=== PATIENT | female | born 1980 | race Caucasian/White ===

== ENCOUNTER 2017-06-15 16:18 | Outpatient (CLI) | payer BC, SELFPAY ==
[2017-06-15 16:37] VITALS: BMI 32.7
[2017-06-15 17:03] LABS: Hematocrit 38.8 % (37-47); Hemoglobin 13.7 g/dl (12.0-15.0); Mean Corp Hgb Conc 35.3 g/gl (32-36); Mean Corpuscular Hgb 31.4 pg (27.0-32.0); Mean Platelet Vol. 11.2 fl (6.2-12.0); Platelet Count 229 K/mm3 (150-450); RBC Distribution Width CV 12.9 % (11.6-14.6); RBC Distribution Width SD 41.9 fl (35.1-43.9); Red Blood Count 4.36 M/mm3 (4.2-5.4)
[2017-06-15 17:04] LABS: Scan Indicated on CBC? Y/N NO
[2017-06-15 17:18] LABS: AST(SGOT) 27 U/L (15-37); Alanine Aminotransfer ALT/SGPT 30 U/L (13-56); Creatinine, Serum 0.63 mg/dL (0.55-1.02); Creatinine, Urine (random) < 13.00 mg/dL (NO RANGE EST.); EST Glomerular Filtration Rate 114 mL/min (>60); Est Glom Filt Rate - Afr Amer 138 mL/min (>60); International Normalized Ratio 0.9; Protein, Urine (Random) < 6.0 mg/dL (<11.9); Prothrombin Time (Protime)PT. 12.6 SECONDS (11.7-14.9); Uric Acid 4.5 mg/dL (2.6-6.0)
--- NOTE | 2017-06-16 05:19 | OB.TRI.NOTE ---
History of Present Illness Date of Service: 06/15/17 Was patient seen by the physician?: No Reason For Visit: R/O H Date of Service: 06/15/17 Final RUBI: 06/12/17 Final RUBI Source: US <20 weeks Gestational age: 40 Weeks and 4 Days History of Present Illness: 36-year-old 1 para 0 who presents from the office for evaluation of blood pressure. She had mildly elevated blood pressure in the office 130s over 80s. Sent to labor and delivery for evaluation. Home Medications Medication Instructions Recorded Nitrofurantoin Macrocrystals 100 mg PO Q12 #13 capsule 11/28/16 [Macrobid] Allergies No Known Allergies Allergy (Verified 11/28/16 23:07) NST - FHR Rate Baby A Baseline: 150 then 135 Variability:: Moderate Accelerations:: 15 x 15 Decelerations:: None NST Reactive:: Yes FHR Category:: Category I Uterine Activity:: irreg ctxs Impression/Plan 36-year-old primigravida at 40-4/7 weeks gestation for rule out preeclampsia. Patient denied any symptoms of preeclampsia to nursing staff here or the office. Her labs were normal. Her blood pressures were completely normal here. There is no evidence of gestational hypertension or preeclampsia. She is discharged home to follow-up in 2-3 days or as needed with kick counts preeclampsia precautions.
== END 2017-06-15 18:30 | disposition home or self-care (01) ==
LOC: WPOUT 16:28 → WP 06-16 08:12
PROVIDERS: Family Provider Physician Assistant; PCP Physician Assistant; Visit Provider Obstetrics & Gynecology
DX: Z03.79 Encounter for other suspected maternal and fetal conditions ruled out (principal)
CPT/HCPCS: 36415; 59025; 59050; 82565; 82570; 84156; 84450; 84460; 84550; 85027; 85610; 85730; 99218; A4216; G0378

== ENCOUNTER 2017-06-16 10:00 | Outpatient (CLI) | payer BC, SELFPAY ==
[2017-06-16 10:47] VITALS: BMI 31.6
--- NOTE | 2017-09-21 23:15 | OB.TRI.NOTE ---
History of Present Illness Reason For Visit: R/O LABOR Final RUBI Source: US <20 weeks Allergies No Known Allergies Allergy (Verified 11/28/16 23:07) Impression/Plan NST for false labor
== END 2017-06-16 12:30 | disposition home or self-care (01) ==
LOC: WPOUT 10:33 → WP 06-17 09:24
PROVIDERS: Family Provider Physician Assistant; PCP Physician Assistant; Visit Provider Advanced Practice Midwife
DX: O47.9 False labor, unspecified (principal); Z3A.00 Weeks of gestation of pregnancy not specified
CPT/HCPCS: 59025; 59050; 99218; G0378

== ENCOUNTER 2017-06-17 08:10 | Inpatient (IN) | payer BC, SELFPAY ==
[2017-06-17 08:29] VITALS: BMI 32.0
--- NOTE | 2017-06-17 08:33 | PCM.HP.OB ---
History Date of Admission: 06/17/17 Final RUBI: 06/17/17 Gestational age: 40 Weeks and 0 Days History of this : GBS positive Pertinent Past Medical History: Pseudotumor cerebri - saw this Asthma Tourette's Migraine headache Allergies No Known Allergies Allergy (Verified 11/28/16 23:07) Smoking Status: Never smoker Alcohol: None Drug Use: none Number of Fetus(es): 1 Physical Exam General: Alert, Oriented x3 Abdomen: Soft, Non Tender, Non-Distended, Gravid Presentation: Cephalic Cervix Dilation (cm): 7 Station: 0 Assessment/Plan 36yo female in labor Admit to L&D GBS positive Declines epidural Routine care Reassuring EFM - fhts 130s with mod variability, accels
[2017-06-17] MEDS: Lactated Ringers 1,000 ML 50 ML IV (08:45)
[2017-06-17 08:58] LABS: ROM Internal Control Test YES-OK TO RESULT pt. (Internal QC)
[2017-06-17 09:00] LABS: ROM Patient Test POSITIVE (Negative)
[2017-06-17 09:06] LABS: Hematocrit 42.3 % (37-47); Hemoglobin 14.9 g/dl (12.0-15.0); Mean Corp Hgb Conc 35.2 g/gl (32-36); Mean Corpuscular Volume 88.1 fL (81-99); Mean Platelet Vol. 11.3 fl (6.2-12.0); Platelet Count 247 K/mm3 (150-450); RBC Distribution Width SD 41.4 fl (35.1-43.9); Scan Indicated on CBC? Y/N NO; White Blood Count 18.9 K/mm3 (4.4-11.0)
--- NOTE | 2017-06-17 10:47 | PCM.OB.VAG ---
Vaginal Delivery Maternal Presentation: Active Labor Amniotic Membrane Rupture Type: Spontaneous at home Amniotic Fluid Description: Clear Final RUBI: 06/11/17 Gestational age: 40 Weeks and 6 Days Date of Procedure: 06/17/17 Pre-Operative Diagnosis: Labor Post-Operative Diagnosis: Labor Surgery/ Procedure Performed: Spontaneous Vaginal Delivery Type of Anesthesia: Epidural Description of Procedure: Patient c/c/+2 and pushing. She was prepped & draped. She pushed to deliver head. Gentle traction placed on head to allow delivery of anterior & posterior shoulders. No excess traction placed on head. Body followed & infant placed on maternal abdomen. 3Vc clamped & cut in delayed fashion. Placenta delivered with gentle traction & good uterine tone obtained. Presentation: ELDA Placenta Disposition: [facility] Cord Vessel Description: 3 Vessels Cord Entanglement: None Estimated Blood Loss: 300ml Infant A gender: Male (1 minute): 8 (5 minute): 9 Episiotomy Description: None Laceration: 1st degree - repaired with 3-0 vicryl Medications given after delivery: IV Pitocin Complications: None
[2017-06-17] MEDS: Oxytocin 30 units/NS 500 ml 30 UNITS/500 ML IV.SOLN 334 UNITS IV (11:30)
[2017-06-17] MEDS: Oxytocin 30 units/NS 500 ml 30 UNITS/500 ML IV.SOLN 167 UNITS IV (12:05)
[2017-06-17] MEDS: Methylergonovine 0.2 MG/ML Ampul IM (12:05)
[2017-06-17 15:45] VITALS: BP 121/78; PULSE 83; RESP 16; TEMP 37.4
[2017-06-17 20:30] VITALS: BP 112/56; PULSE 60; RESP 16; TEMP 37.2
[2017-06-18 00:21] VITALS: BP 117/68; PULSE 69; RESP 16; TEMP 36.8
[2017-06-18 04:15] VITALS: BP 115/65; PULSE 68; RESP 18; TEMP 36.6
[2017-06-18 08:21] VITALS: BP 130/61; PULSE 70; RESP 16; TEMP 36.6
--- NOTE | 2017-06-18 08:52 | PCM.PN.OB ---
Subjective: pain well controlled, average lochia - Physical Exam General: Alert, Cooperative, No apparent distress Vital Signs Temp Pulse Resp BP 97.9 F 70 16 130/61 H 06/18/17 08:21 06/18/17 08:21 06/18/17 08:21 06/18/17 08:21 Oxygen Delivery Method Room Air Weight: 79.4 kg Body Mass Index (BMI) 32.0 Intake and Output for Last 24 Hours 06/16/17 06/17/17 06/18/17 23:59 23:59 23:59 Intake Total 1450 / 1450 Output Total 1900 / 1900 Balance -450 / -450 Laboratory Tests Past 24 Hrs 06/17/17 06/17/17 06/17/17 08:25 08:45 08:45 WBC 18.9 H RBC 4.80 Hgb 14.9 Hct 42.3 MCV 88.1 MCH 31.0 MCHC 35.2 RDW 13.0 RDW Differential 41.4 Plt Count 247 MPV 11.3 Vag Amniotic Fld Detect POSITIVE H Blood Type O POSITIVE Antibody Screen NEGATIVE Medical Necessity - Tobacco Use Smoking Status: Never smoker Assessment/Plan PPD#1 doing well work on \ likely home tomorrow
--- NOTE | 2017-06-18 08:54 | DCINST_ITS ---
Discharge Diet: No Restrictions Discharge Activity: Return to Normal Activity, May not drive while taking narcotic pain medications., May Shower May resume sexual activity in: 4-6 weeks Additional Activity Instructions:: Nothing in the vagina for 4-6 weeks. You may return to work/school in 6 weeks. Call your doctor if your incision/area has: Continuous Slow Oozing, Sudden Increased Bleeding, Increased Pain/ Swelling, Increased Redness, Foul Smelling Discharge Additional Instructions: If you experience any of the following, contact your healthcare provider. * Bleeding that soaks a pad every hour for 2 hours * Fever 100.4 or higher * Unrelieved incision or abdominal pain * Swelling, redness, discharge or bleeding from your incision or episiotomy site * Your incision begins to separate * Problems urinating (including inability to urinate or burning while urinating) . * Visual changes * Severe headache * Flu-like symptoms * Pain or redness in one of both of your breasts * Pain, warmth, tenderness or swelling in your legs, especially the calf area * Frequent nausea and vomiting * Symptoms of depression or anxiety If you experience any of the following, call 911 or go to the nearest Emergency Room. * Chest pain * Problems breathing * Seizure activity * Partial or complete paralysis of a body part, slurred speech, weakness or drooping of the face, or a sudden inability to walk or hold your balance Allergies/Adverse Reactions: Allergies No Known Allergies Allergy (Verified 11/28/16 23:07) Medications to take at Discharge Vits [Prenatabs FA ] 1 tablet PO DAILY 06/16/17 Ibuprofen [Motrin] 800 mg PO TID PRN PRN #60 tab 06/18/17 The following prescriptions were given: Ibuprofen [Motrin] 800 mg PO TID PRN PRN #60 tab PRN Reason: Pain Orders to be completed after discharge: Electric breast pump Location: None Selected Please Follow Up With: Jeni Prescott MD - [phone] When: Call to make an appointment with your doctor in 6 weeks. If you had elevated Blood Pressure or 4th degree laceration you will need to be seen in 2 weeks. Primary Care Physician: Wendy Diallo PA [Primary Care Provider] -
[2017-06-18 11:37] VITALS: BP 119/59; PULSE 69; RESP 16; TEMP 36.8
[2017-06-18 14:48] VITALS: BP 124/75; PULSE 78; RESP 16; TEMP 37.1
[2017-06-18 20:48] VITALS: BP 122/80; PULSE 66; RESP 16; TEMP 37.1; O2SAT 97
[2017-06-19 02:00] VITALS: BP 124/77; PULSE 66; RESP 16; TEMP 36.7
[2017-06-19 08:08] VITALS: BP 133/69; PULSE 61; RESP 16; TEMP 36.9
--- NOTE | 2017-06-19 08:51 | PCM.PN.OB ---
Subjective: pain well controlled, average lochia, + BM - Physical Exam General: Alert, Cooperative, No apparent distress Vital Signs Temp Pulse Resp BP Pulse Ox 98.5 F 61 16 133/69 H 97 06/19/17 08:08 06/19/17 08:08 06/19/17 08:08 06/19/17 08:08 06/18/17 20:48 Oxygen Delivery Method Room Air Weight: 79.4 kg Body Mass Index (BMI) 32.0 Intake and Output for Last 24 Hours 06/17/17 06/18/17 06/19/17 23:59 23:59 23:59 Intake Total 1450 / 1450 Output Total 1900 / 1900 Balance -450 / -450 Medical Necessity - Tobacco Use Smoking Status: Never smoker Assessment/Plan day #2 Doing well. Routine care. Will be discharged home today. Breast-feeding and doing well.
[2017-06-19 12:38] VITALS: BP 110/56; PULSE 70; RESP 16; TEMP 36.8
== END 2017-06-19 13:05 | disposition home or self-care (01) | DRG 775 ==
PROVIDERS: Admitting Provider Obstetrics & Gynecology; Family Provider Physician Assistant; PCP Physician Assistant; Visit Provider Obstetrics & Gynecology
DX: O48.0 Post-term pregnancy (principal); Z3A.40 40 weeks gestation of pregnancy; Z37.0 Single live birth; G93.2 Benign intracranial hypertension; O99.824 Streptococcus B carrier state complicating childbirth; J45.909 Unspecified asthma, uncomplicated
CPT/HCPCS: 59025; 59050; 84112; 85027; 86850; 86900; 99218; J7120; G0378

== ENCOUNTER 2017-06-26 09:52 | Outpatient (CLI) | payer BC, SELFPAY | END 2017-06-26 11:00 | disposition home or self-care (01) | LOC: WPOUT 09:55 → WP 09:55 | PROVIDERS: Family Provider Physician Assistant; PCP Physician Assistant; Visit Provider Pediatrics | DX: R63.3 Feeding difficulties (principal) | CPT/HCPCS: 96152 ==